=== PATIENT | female | born 1970 | race Caucasian/White ===

== ENCOUNTER 2024-06-11 06:04 | Day surgery (SDC) | payer BC ==
[2024-06-11] MEDS: Lactated Ringers 1,000 ML IV SCH (07:13)
[2024-06-11] MEDS ORDERED: propofoL 50 ML ONE ×2 (07:35→08:14)
[2024-06-11] MEDS ORDERED: fentaNYL 100 MCG/2 ML SDV ONE (07:36)
[2024-06-11] MEDS ORDERED: Lidocaine 4% 5 ML Amp ONE (07:41)
[2024-06-11 09:06] VITALS: BP 95/63; PULSE 56
== END 2024-06-11 09:15 | disposition home or self-care (01) ==
LOC: MW.SDS 06:04
PROVIDERS: ATTEND Surgery
DX: Z12.11 Encounter for screening for malignant neoplasm of colon (principal); K29.50 Unspecified chronic gastritis without bleeding; K21.9 Gastro-esophageal reflux disease without esophagitis; Z80.0 Family history of malignant neoplasm of digestive organs
CPT/HCPCS: 43239; 45378; J2704; J3010; J7120; 00813; J3490